=== PATIENT | female | born 1985 | race Hispanic/Latino ===

== ENCOUNTER 2018-12-18 02:58 | Emergency (ER) | payer OTHER ==
[2018-12-18] MEDS ORDERED: SODIUM CHLORIDE 0.9% 500ML 500 ML IV ONE (03:00)
[2018-12-18] MEDS ORDERED: FAMOTIDINE 20MG TAB 20 MG TAB ONE (03:32)
[2018-12-18] MEDS ORDERED: DiphenhydrAMINE HCL 50 MG/ML VIAL ONE (03:32)
[2018-12-18] MEDS ORDERED: PREDNISONE 20 MG TABLET ONE (03:32)
== END 2018-12-18 03:57 | disposition home or self-care (01) ==
LOC: EDH 02:58
DX: L50.0 Allergic urticaria (principal); Z98.890 Other specified postprocedural states
CPT/HCPCS: 96372; 99283; J1200; J7040